=== PATIENT | female | born 1990 | race Caucasian/White ===

== ENCOUNTER 2017-05-03 23:00 | Inpatient (IN) | payer OTHER ==
[~2017-05-03] VITALS: Ht 165.1 cm; Wt 49.9 kg
--- NOTE | ~2017-05-03 | DS ---
Unit #: [id number] #: [id number] Patient: [facility] CALVO [id number] [facility] [address] [place] [address] [id number] MR#: [id number] NAME: HERMELINDA CALVO. ROOM: P174 Age: 26 Sex: F Admission Date: 05/04/2017 : 1990 Discharge Date: 05/08/2017 Attending Physician: Morena Malone M.D. Primary Care Physician: Primary Care Physician No DISCHARGE SUMMARY IDENTIFYING DATA Ms. Calvo is a 26-year-old, , white female who is a resident of [place], [place] and was self-referred to the hospital on a voluntary basis with a blood alcohol level of 0.087. DISCHARGE DIAGNOSES Psychiatric: Alcohol dependence, moderate and acute withdrawals; opioid dependence, moderate; alcohol-induced mood disorder. Medical: None. Stressors: Moderate psychosocial stressors. HISTORY OF PRESENT ILLNESS Please see initial psychiatric evaluation for details. PAST PSYCHIATRIC HISTORY Please see initial psychiatric evaluation for details. PAST MEDICAL HISTORY Please see initial psychiatric evaluation for details. HOSPITAL COURSE The [facility] and was oriented to the hospital environment. Routine p.r.n. medications were initiated, and she was started on the detox protocol and was closely monitored. She was seen to be anxious, withdrawn, and rather seclusive to herself, though was cooperative with treatment recommendation and was taking the medications regularly and was tolerating them fairly well and was able to come out of the detox without any complications and as such, it was decided that she will be discharged home and will continue treatment on an outpatient basis. DISCHARGE MEDICATIONS None. DISCHARGE CONDITION Stable. PROGNOSIS Fair. Dictated by... Morena Malone M.D. Unit #: [id number] #: [id number] Patient: HERMELINDA CALVO IAA/modl TD: 05/08/2017 19:10 JOB #: [id number] DISCHARGE SUMMARY Page 1 of 1 X Morena Malone MD X DISCHARGE SUMMARY
--- NOTE | ~2017-05-03 | PA ---
Unit #: [id number] #: [id number] Patient: HERMELINDA CALVO [id number] [facility] [address] [place] [address] [id number] MR#: [id number] NAME: HERMELINDA CALVO. ROOM: P174 Age: 26 Sex: F Admission Date: 05/04/2017 : 1990 Date of Assessment: 05/04/2017 Attending Physician: Morena Malone M.D. Admitting Physician: Morena Malone M.D. Primary Care Physician: Primary Care Physician No PSYCHIATRIC ASSESSMENT DATE OF SERVICE 05/04/2017. IDENTIFYING DATA Ms. Calvo is a 26-year-old white female, who is a resident of [place], [place], and was self-referred to the hospital on a voluntary basis with a blood alcohol level of 0.087. CHIEF COMPLAINT "I've been drinking a fifth of vodka daily." HISTORY OF PRESENT ILLNESS Ms. Calvo is a 26-year-old white female with history of substance abuse and dependence, who was self-referred to the hospital stating that she has been drinking a fifth of vodka on a daily basis and last drink several hours ago during the afternoon hours, though she was still intoxicated upon presentation and she was finding it difficult to be redirected and laughing at questions, fidgeting in the chair, and reports that she has been drinking a fifth of vodka daily for the last 8 years and parents of the patient were present during the assessment. They report that on occasion the patient exceeds a fifth of vodka and that she has been returning to the liquor store to purchase another container after finishing the first one. The patient reports that she is suicidal and when asked what the plan is, the patient reports that she plans to hang herself with a rope and reports that she has lost custody of her children and is having financial issues and "I lost everything, I feel like drinking myself to ." She also reports that she also uses Suboxone, but that she has not had any in the last 3 days and apparently was having some withdrawals from opioids as well. SUBSTANCE ABUSE HISTORY The patient reports history of alcohol and opioid dependence, currently alcohol has been her drug of choice. PAST PSYCHIATRIC HISTORY The patient has not had any prior inpatient or outpatient psychiatric treatment. Review of the medical records indicate that currently she is not active in any treatment program, is not seeing a psychiatrist, and is not taking any psychotropic medications. PAST MEDICAL HISTORY No acute or chronic medical illnesses. Unit #: [id number] #: [id number] Patient: HERMELINDA CALVO ALLERGIES No known medication allergies. PERSONAL AND SOCIAL HISTORY A [id number] white female, who reports that she is single, unemployed, and lives at home with her parents and has a daughter and reports fairly decent social support system. MENTAL STATUS EXAMINATION Young white female, who was casually dressed with fair personal hygiene, and appears to be in no acute distress or discomfort. She was awake and alert on interaction with intact orientation to time, place, and person. Her mood was anxious and depressed with a congruent affect. Her speech was slow and restricted in content. She reports having suicidal ideations, but denies any homicidal ideations and also denies any auditory or visual hallucinations. Her insight and judgment remain significantly impaired. DIAGNOSTIC IMPRESSION Psychiatric: Alcohol dependence, moderate, in acute withdrawals; opioid dependence, moderate, in acute withdrawal; and alcohol-induced mood disorder. Medical: None. Stressors: Moderate psychosocial stressors. TREATMENT PLAN 1. The patient has presented with a history of mood disorder and has been decompensating and will need inpatient hospitalization for detoxification, safety, and stabilization. We will start her back on her home medications. We will adjust the medications and monitor response. 2. Supportive therapy was provided to the patient. 3. Safe, structured, and nourishing environment will be provided. ESTIMATED LENGTH OF STAY 5 to 7 days. ABILITY TO HELP SELF Limited. WILLINGNESS TO HELP SELF The patient appears to be willing to help self. STRENGTHS 1. Communicative. 2. Cooperative. PROBLEMS 1. Chronic dysphoric symptoms. 2. Chronic chemical dependency. 3. Poor social support system. DISCHARGE CRITERIA This will be contingent upon the patient's ability to show resolution of her depression and anxiety and her ability to stay safe to herself, particularly after discharge from the hospital. Dictated by... Morena Malone M.D. Unit #: [id number] #: [id number] Patient: HERMELINDA CALVO IAA/modl TD: 05/04/2017 19:03 JOB #: [id number] PSYCHIATRIC ASSESSMENT Page 1 of 1 X Morena Malone MD PSYCHIATRIC ASSESSMENT
--- NOTE | ~2017-05-03 | PN ---
Unit #: [id number] #: [id number] Patient: HERMELINDA CHRIS [id number] [facility] [address] [place] [address] [id number] I MR#: [id number] NAME: HERMELINDA CHRIS. ROOM: P174 Age: 26 Sex: F Admission Date: 05/04/2017 : 1990 Attending Physician: Morena Malone M.D. Admitting Physician: Morena Malone M.D. Primary Care Physician: Primary Care Physician Sarah GAMBINO NOTES DATE May 07, 2017 DISCUSSION Ms. Chris is a 26-year-old white female, who was seen today and chart was reviewed and the case was discussed with the staff. She has been anxious, withdrawn, and rather seclusive to herself. Meanwhile, she has been cooperative with the treatment recommendations and she has been taking the medications and tolerating them fairly well with no reported side effects. MENTAL STATUS EXAMINATION Young white female, who was casually dressed with fair personal hygiene and appears to be in no acute distress or discomfort. She was awake and alert with impaired attention and concentration. Her mood was anxious with a congruent affect. The patient denies any suicidal or homicidal ideations. Her insight and judgment remain slightly impaired. TREATMENT PLAN 1. We will continue her on her current medications and treatment protocol, and will monitor her response to the medications, and make further adjustments as needed. 2. We will continue to followup. Dictated by... Mojgan Bertrand/riley TD: 05/08/2017 08:56 JOB #: [id number] D[facility] PROGRESS NOTES Page 1 of 1 X Morena Malone MD X PROGRESS NOTE
--- NOTE | ~2017-05-03 | HP ---
Unit #: [id number] #: [id number] Patient: NERY CALVO [id number] [place] [address] [id number] I MR#: [id number] NAME: NERY CALVO. ROOM: P174 Age: 26 Sex: F Admission Date: 05/04/2017 : 1990 Attending Physician: Morena Malone M.D. Admitting Physician: Morena Malone M.D. Primary Care Physician: Primary Care Physician No HISTORY AND PHYSICAL HISTORY OF PRESENT ILLNESS Nery is a 26 year old admitted to [facility] because of her abuse of alcohol. She is detoxing. PAST MEDICAL HISTORY History of alcohol abuse. PAST SURGICAL HISTORY D & C ALLERGIES No known drug allergies. SOCIAL HISTORY Smokes one-half packs per day. Drinks a fifth of vodka on a daily basis. Denies illicit drug use. FAMILY HISTORY Medically noncontributory. REVIEW OF SYSTEMS CONSTITUTIONAL: No fever or chills. HEENT: Denies any sore throat, ear pain or runny nose. CARDIOVASCULAR: Denies chest pain, irregular heart rhythm or palpitations. CHEST: Denies shortness of breath or cough. No hemoptysis. GASTROINTESTINAL: Denies nausea, vomiting, diarrhea or chronic constipation. ENDOCRINE: Denies history of increased thirst or urination. No recent significant weight loss or gain. GENITOURINARY: Denies dysuria, frequency, or hematuria. SKIN: Denies any rashes. HEMATOLOGIC: Denies history of increased bleeding or bruising. MUSCULOSKELETAL: Denies any hot, swollen joints. No generalized muscle pain. NEUROLOGIC: Denies problems with vision or speech. No frequent, severe headaches. No numbness, tingling or weakness in any extremities. Denies loss of bladder or bowel control. CURRENT MEDICATIONS 1. Detox protocol 2. Nicotine patch 21 mg q day PHYSICAL EXAMINATION Unit #: [id number] #: [id number] Patient: NERY CALVO GENERAL: Alert, well-nourished, in no apparent distress. VITAL SIGNS: Blood pressure 106/64, heart rate 80, respirations 16, temperature 98.6. WEIGHT: 110 pounds. HEIGHT: 5'5". SKIN: Warm and dry without rash or lesion. HEENT: Normocephalic. TMs not viewed. Oral and nasal passages clear. Conjunctivae clear. Pupils equal, round and reactive to light and accommodation. Extraocular movements intact. NECK: Supple without lymphadenopathy or thyromegaly. HEART: Regular rate and rhythm without murmur. LUNGS: Clear. ABDOMEN: Soft, nontender. : Not done. EXTREMITIES: No evidence of cyanosis, clubbing or edema. Moves all extremities without focal deficit. NEUROLOGICAL: Grossly within normal limits. Cranial Nerves: II: Visual la are intact. III, IV AND : Extraocular movements are intact. Pupils are equal, round and reactive to light. V: Facial sensation is grossly normal. VII: Facial movements and expression are normal. VIII: Auditory acuity grossly intact. IX, X: Uvula is midline. Phonation is normal. XI: Patient shrugs shoulders and turns head normally. XII: Tongue protrudes in the midline. Sensory and Motor Function: Sensory and motor sensation is grossly normal. Motor: moves all extremities well. Coordination: Gait is normal. Deep Tendon Reflexes: Intact. IMPRESSION Psychiatric admission. RECOMMENDATIONS PSYCHIATRIC: Per psychiatrist. MEDICAL: I see no contraindications to participating in facility's activities. MEDICAL PROGNOSIS Good. MEDICAL CONDITION Stable. Dictated by... Mala Dorantes PAddieAAddie-Bee. for Mojgan Smiley/mara TD: 05/04/2017 21:19 JOB #: [id number] Unit #: [id number] #: [id number] Patient: NERY CALVO HISTORY AND PHYSICAL Page 1 of 1 X Mala Dorantes X HISTORY AND PHYSICAL
--- NOTE | ~2017-05-03 | PN ---
Unit #: [id number] #: [id number] Patient: HERMELINDA CHRIS [id number] [facility] [address] [place] [address] [id number] I MR#: [id number] NAME: HERMELINDA CHRIS. ROOM: P174 Age: 26 Sex: F Admission Date: 05/04/2017 : 1990 Attending Physician: Morena Malone M.D. Admitting Physician: Morena Malone M.D. Primary Care Physician: Primary Care Physician Sarah GAMBINO NOTES DATE OF SERVICE 05/05/2017 DISCUSSION Ms. Chris is a 26-year-old white female who was seen today. Chart was reviewed and case was discussed with the staff. She has been anxious, withdrawn, and rather seclusive to herself. Meanwhile, she has been cooperative with the treatment recommendations and has been taking the medications and tolerating them fairly well with no reported side effects. There still appears to be some distress or discomfort. However, has not shown any agitation or irritability, and for the most part has been cooperative with the treatment recommendations. MENTAL STATUS EXAMINATION Young white female who is casually dressed with fair personal hygiene, appears to be in no acute distress or discomfort. The patient was awake and alert with impaired attention and concentration. Her mood is anxious with congruent affect. She denies any suicidal or homicidal ideations. Her insight and judgment remain slightly impaired. TREATMENT PLAN 1. We will continue her on her current medications and treatment protocol. We will monitor her response to the medications and make further adjustments as needed. 2. We will continue to follow up. Dictated by... Mojgan Bertrand/bzg TD: 05/05/2017 08:51 JOB #: [id number] Unit #: [id number] #: [id number] Patient: HERMELINDA CHRIS DHRUV PROGRESS NOTES Page 1 of 1 X Morena Malone MD PROGRESS NOTE
--- NOTE | ~2017-05-03 | PN ---
Unit #: [id number] #: [id number] Patient: HERMELINDA CHRIS [id number] [facility] [address] [place] [address] [id number] MR#: [id number] NAME: HERMELINDA CHRIS. ROOM: P174 Age: 26 Sex: F Admission Date: 05/04/2017 : 1990 Attending Physician: Morena Malone M.D. Admitting Physician: Morena Malone M.D. Primary Care Physician: Primary Care Physician Sarah GAMBINO NOTES DATE 05/06/2017 DISCUSSION Ms. Chris is a 26-year-old white female with alcohol dependence and mood disorder who was seen today and chart was reviewed and case was discussed with the staff. She appears to be going through acute detox as she was laying in the bed and was anxious, withdrawn, unkempt, disheveled and in distress and discomfort and hardly able to carry on much conversation. Meanwhile, she has been taking the medications and tolerating them fairly well with no reported side effects. MENTAL STATUS EXAMINATION Young white female who was casually dressed with fair personal hygiene and appears to be in no acute distress or discomfort. She was awake and alert with impaired attention and concentration. Her mood was anxious with congruent affect. She denies any suicidal or homicidal ideations. Her insight and judgement remains significantly impaired. TREATMENT PLAN 1. Will continue on current medications and treatment protocol. Will monitor her response to the medications and make further adjustments as needed. 2. Will continue to follow up. Dictated by... Mojgan Bertrand/ryan TD: 05/06/2017 20:20 JOB #: [id number] Unit #: [id number] #: [id number] Patient: HERMELINDA CHRIS DHRUV PROGRESS NOTES Page 1 of 1 X Morena Malone MD PROGRESS NOTE
--- NOTE | ~2017-05-03 | A ---
[facility] Nutrition Therapy DATE: 05/05/17 Patient: HERMELINDA CALVO Physician: PENELOPEAIRF Address: [address] Room/Bed: [address], Zip: [place] [address] Admit Date: 05/04/17 Date of : [birth year] Height: 5 5 Weight: [phone] NUTRITIONAL ASSESSMENT: REASON: LOW BMI (18.3), UNINTENTIONAL WEIGHT LOSS PATIENT ADMITTED FOR ETOH DETOX PMH: NONE Anthropometrics: HT: 65", WT: 110#, BMI: 18.3, %IBW: 88 Labs: 05/04/17- NUTRITIONAL LABS WNL Meds: KARY SPENCER, DETOX PROTOCOL Assessment: PATIENT IS A 26 Y/O FEMALE ADMITTED FOR ETOH DETOX. PATIENT IS CURRENTLY UNEMPLOYED, LIVES WITH HER PARENTS, SMOKES 1 1/2 PPD, HAS DAILY ETOH USE, AND FREQUENT SUBOXONE USE. PATIENT DRINKS AT LEAST A FIFTH DAILY. UPON ADMIT PATIENT STATED A FAIR APPETITE WITH A 203 WEIGHT LOSS OVER LAST SEVERAL MONTHS, AND SHE HAS NOT BEEN SLEEPING. NURSING REPORTS FAIR PO INTAKES. PATIENT HAS HAD SOME C/O NAUSEA. PATIENT IS ACTIVELY DETOXING. THERE ARE NO SKIN ISSUES NOTED ATT. PATIENT IS ON A REGULAR DIET. THIS RD SUSPECTS WEIGHT AND APPETITE TO STABILIZE AND POSSIBLY INCREASE FOLLOWING DETOX. Dx: INADEQUATE PO INTAKES R/T CURRENT CONDITIONS, DETOX AEB SELF-REPORTED WEIGHT LOSS, DECREASED APPETITE, LOW BMI, NUTRITIONAL RISK POINT Intervention: REGULAR DIET, MEDS PER MD, DETOX, PSYCH Monitoring, Evaluation and Goals: 1. ADEQUATE PO INTAKES >50-75% OF MEALS 2. PREVENT, CORRECT MICRO/MACRO NUTRIENT DEFICIENCIES 3. WEIGHT; PROMOTE A STEADY WEIGHT GAIN TOWARDS A HEALTHY BMI OF 19-25, PREVENT FURTHER WEIGHT LOSS MONITOR: WEIGHTS, LABS, PO/FLUID INTAKES Recommendations: 1. CONTINUE REGULAR DIET TOLERATED. OFFER SNACKS BETWEEN MEALS. IF PATIENT HAS C/O HUNGER PLEASE SEND ORDER FOR LARGER PORTIONS AND RD WILL APPROVE 2. ENCOURAGE ADEQUATE PO AND FLUID INTAKES 3. OBTAIN WEIGHTS ROUTINELY (EVERY 3-4 DAYS) 4. IF PO INTAKES FALL BELOW 50-75% CONSUMPTION OF MEALS PLEASE ORDER ENSURE BID TO PROMOTE [facility] Nutrition Therapy DATE: 05/05/17 Patient: HERMELINDA CALVO Physician: AFAIRF Address: [address] Room/Bed: [address], Zip: [place] [address] Admit Date: 05/04/17 Date of : [birth year] Height: 5 5 Weight: [phone] ADEQUATE KCAL AND PROTEIN INTAKES RD TO F/U PER PROTOCOL AND PRN R/T PATIENT MILDLY COMPROMISED Respectfully, TUTU DAVIS, RD, LD [facility] Nutrition[facility] Services [facility] cc: client file
[2017-05-04 09:54] LABS: BASOPHIL# 0.1 X10e3 (0-0.3); BASOPHIL% 1.3 % (0-2.5); EOSINOPHIL# 0.5 X10e3 (0-0.7); EOSINOPHIL% 4.7 % (0.0-7.0); HEMATOCRIT 42.1 % (35.0-45.0); HEMOGLOBIN 13.9 gm/dL (12.0-16.0); LYMPHOCYTE# 4.7 X10e3 (1.0-3.5); LYMPHOCYTE% 48.8 % (17.0-45.0); MEAN CELL VOLUME 92.5 FL (83-96); MEAN CORPUSCULAR HEMOGLOBIN 30.6 PG (28-34); MEAN CORPUSCULAR HGB CONC 33.1 g/dL (30-36); MEAN PLATELET VOLUME 8.9 FL (6.5-11.5); MONOCYTE# 0.5 X10e3 (0-1.0); MONOCYTE% 5.4 % (3.0-12.0); NEUTROPHIL# 3.9 X10e3 (1.5-7.1); NEUTROPHIL% 39.8 % (40-75); PLATELET COUNT 273 X10e3 (140-420); RED BLOOD COUNT 4.55 X10e (3.90-5.30); RED CELL DISTRIBUTION WIDTH 16.1 % (11.0-15.5); WHITE BLOOD COUNT 9.7 X10e3 (4.0-10.5)
[2017-05-04 10:05] LABS: DIFF IND NO
[2017-05-04 10:30] LABS: ALBUMIN SERUM 3.6 g/dL (3.5-5.0); BILIRUBIN,TOTAL 0.7 mg/dL (0.2-2.0); CALCIUM SERUM 8.7 mg/dL (8.4-10.2); CREATININE SERUM 0.6 mg/dL (0.6-1.4); GLOM FILT RATE Estimated 124.9 mL/min (>60); POTASSIUM 3.6 mmol/L (3.5-5.1); PROTEIN TOTAL SERUM 6.1 g/dL (6.0-8.3)
== END 2017-05-08 10:40 | DRG 897 ==
LOC: P1E 05-04 02:04
PROVIDERS: Psychiatry & Neurology Psychiatry
PROC: HZ2ZZZZ Detoxification Services for Substance Abuse Treatment (ICD-10-PCS; principal; 2017-05-04)
DX: F10.230 Alcohol dependence with withdrawal, uncomplicated (principal); F11.23 Opioid dependence with withdrawal; R45.851 Suicidal ideations; F10.24 Alcohol dependence with alcohol-induced mood disorder; F17.210 Nicotine dependence, cigarettes, uncomplicated
CPT/HCPCS: 80053; 84703; 85025; 86592

== ENCOUNTER 2017-05-21 | Inpatient (IN) | payer OTHER ==
[~2017-05-21] VITALS: Ht 154.9 cm; Wt 59.4 kg
--- NOTE | ~2017-05-21 | DS ---
Unit #: [id number] #: [id number] Patient: [facility] [id number] [facility] [address] [place] [address] [id number] I MR#: [id number] NAME: HERMELINDA CHRIS. ROOM: P212 Age: 26 Sex: F Admission Date: 05/21/2017 : 1990 Discharge Date: 05/25/2017 Attending Physician: Morena Malone M.D. Primary Care Physician: Generic Doctor Not In System DISCHARGE SUMMARY REVISED REPORT (See Addendum) IDENTIFYING DATA Ms. Chris is a 26-year-old white female, who is a resident of [place], [place], and was self-referred to the hospital on voluntary basis. DISCHARGE DIAGNOSES Psychiatric: Major depressive disorder, recurrent, moderate, without psychotic features; opioid dependence, moderate and acute withdrawals; alcohol dependence, moderate and acute withdrawals. Medical: None. Stressors: Moderate psychosocial stressors. HISTORY OF PRESENT ILLNESS Please see initial psychiatric evaluation for details. PAST PSYCHIATRIC HISTORY Please see initial psychiatric evaluation for details. PAST MEDICAL HISTORY Please see initial psychiatric evaluation for details. HOSPITAL COURSE The patient was admitted to the adult psychiatric unit at [facility] and was oriented to the hospital environment. Routine p.r.n. medications were initiated, and she was started back on her home medications and was closely monitored. She was taking the medications regularly and was tolerating them fairly well and was able to show a decent and therapeutic response with improvement in depression and anxiety, and as such, it was decided that she will be discharged home and will continue treatment on an outpatient basis. DISCHARGE MEDICATIONS Effexor XR 75 mg a day for depression, Seroquel 100 mg at bedtime for depression. DISCHARGE CONDITION Stable. PROGNOSIS Fair. Dictated by... Morena Malone M.D. Unit #: [id number] #: [id number] Patient: HERMELINDA CHRIS IAA/modl TD: 05/23/2017 23:44 JOB #: [id number] ADDENDUM Ms. Chris is a 26-year-old white female with history of substance abuse and mood disorder who was initially scheduled to be discharged on May 23; however, she stated that she was not feeling safe and was still having detox symptoms. As such discharge planning was canceled, and medications were maintained, and once he started feeling better, she felt comfortable continuing treatment on outpatient basis. As such it was decided that she will be discharged home. We will continue treatment on outpatient basis. CONDITION ON DISCHARGE Stable. PROGNOSIS Fair. Dictated by... Mojgan Bertrand/bzg TD: 05/25/2017 07:17 JOB #: [id number] DISCHARGE SUMMARY Page 1 of 1 X Morena Malone MD X DISCHARGE SUMMARY
--- NOTE | ~2017-05-21 | HP ---
Unit #: [id number] #: [id number] Patient: HERMELINDA CALVO [id number] [facility] [address] [place] [address] [id number] I MR#: [id number] NAME: HERMELINDA CALVO. ROOM: P212 Age: 26 Sex: F Admission Date: 05/21/2017 : 1990 Attending Physician: Morena Malone M.D. Admitting Physician: Morena Malone M.D. Primary Care Physician: Generic Doctor Not In System HISTORY AND PHYSICAL REASON FOR ADMISSION Acute psychiatric inpatient admission. HISTORY OF PRESENT ILLNESS The patient is a 26-year-old female, positive suicidal ideation, increased aggressive behavior, at home, thus was admitted for same feelings of hopelessness, was also noted. PAST MEDICAL HISTORY Prior history of underlying mental illness, prior history of head trauma. CURRENT MEDICATIONS Suboxone. ALLERGIES Sulfa drugs. FAMILY HISTORY Alcoholism. SOCIAL HISTORY Alcohol, tobacco, Suboxone prescribed. REVIEW OF SYSTEMS Disheveled slurred speech, depressed, flat affect. Otherwise as per HPI. PHYSICAL EXAMINATION GENERAL: Awake, alert, oriented to person, place, and time. Well built, well nourished. Does not appear to be in any acute distress. VITAL SIGNS: Temperature 97.8, pulse 104, respiratory rate 20, blood pressure 127/93. HEAD: Atraumatic. Normocephalic. EYES: Bilateral extraocular muscles are normal. Pupils equal, reactive to light and accommodation. Sclerae are normal. No jaundice. NECK: Neck is supple. No neck rigidity. No thyromegaly. No carotid bruit. No JVD. Oral mucosa is moist. CHEST: Bilateral vesicular breathing. Clear to auscultation. No basilar rales. CARDIOVASCULAR: S1 and S2 normal. No murmur, no gallop, no rub. ABDOMEN: Soft, nontender. No organomegaly. Bowel sounds are normal. No hernia, no masses, no rebound, no guarding. EXTREMITIES: No pitting edema. No calf tenderness. Extremity pulses, including dorsalis pedis, have good volume. Unit #: [id number] #: [id number] Patient: HERMELINDA CALVO BACK: Normal spine curvature. No spine tenderness. No costovertebral angle tenderness. CLAIM PROFESSIONAL: Cranial nerves normal bilaterally. Motor function bilaterally symmetric and normal. Sensory system normal. SKIN: Warm and dry. ASSESSMENT 1. Acute psychiatric inpatient admission. 2. Suicidal ideation. PLAN As per psychiatrist, medical condition stable, medical prognosis fair. There are no medical contraindications to patient participating in activities while here at [facility]. Dictated by... Tyra Arreola M.D. GINO/elliot TD: 05/21/2017 19:03 JOB #: [id number] HISTORY AND PHYSICAL Page 1 of 1 X Tyra Arreola MD X HISTORY AND PHYSICAL
--- NOTE | ~2017-05-21 | PN ---
Unit #: [id number] #: [id number] Patient: HERMELINDA CALVO [id number] [facility] [address] [place] [address] [id number] MR#: [id number] NAME: HERMELINDA CALVO. ROOM: P212 Age: 26 Sex: F Admission Date: 05/21/2017 : 1990 Attending Physician: Morena Malone M.D. Admitting Physician: Morena Malone M.D. Primary Care Physician: Generic Doctor Not In System [facility] PROGRESS NOTES DATE OF SERVICE 05/22/2017 DISCUSSION Ms. Calvo is a 26-year-old white female who was seen today. Chart was reviewed and case was discussed with the staff. She remains anxious, withdrawn, depressed, in acute distress and discomfort. Meanwhile, she has been taking the medications and tolerating them fairly well with no reported side effects. MENTAL STATUS EXAMINATION Young white female who is casually dressed with fair personal hygiene, appears to be in no acute distress or discomfort. She was awake and alert with intact orientation. Her mood is anxious with congruent affect. She denies any suicidal or homicidal ideations. Her insight and judgment remain slightly impaired. TREATMENT PLAN 1. We will continue her on her current medications and treatment protocol. We will monitor her response to the medications and make further adjustments as needed. 2. We will continue to follow up. Dictated by... Morena Malone M.D. IAA/bzg TD: 05/23/2017 07:22 JOB #: [id number] [facility] PROGRESS NOTES Page 1 of 1 X Morena Malone MD PROGRESS NOTE
--- NOTE | ~2017-05-21 | DS ---
Unit #: [id number] #: [id number] [facility]: [facility]VO [id number] [facility] [address] [place] [address] [id number] MR#: [id number] NAME: HERMELINDA CALVO. ROOM: P212 Age: 26 Sex: F Admission Date: 05/21/2017 : 1990 Discharge Date: Attending Physician: Morena Malone M.D. Primary Care Physician: Generic Doctor Not In System DISCHARGE SUMMARY IDENTIFYING DATA Ms. Calvo is a 26-year-old white female, who is a resident of [place], [place], and was self-referred to the hospital on voluntary basis. DISCHARGE DIAGNOSES Psychiatric: Major depressive disorder, recurrent, moderate, without psychotic features; opioid dependence, moderate and acute withdrawals; alcohol dependence, moderate and acute withdrawals. Medical: None. Stressors: Moderate psychosocial stressors. HISTORY OF PRESENT ILLNESS Please see initial psychiatric evaluation for details. PAST PSYCHIATRIC HISTORY Please see initial psychiatric evaluation for details. PAST MEDICAL HISTORY Please see initial psychiatric evaluation for details. HOSPITAL COURSE The [facility] and was oriented to the hospital environment. Routine p.r.n. medications were initiated, and she was started back on her home medications and was closely monitored. She was taking the medications regularly and was tolerating them fairly well and was able to show a decent and therapeutic response with improvement in depression and anxiety, and as such, it was decided that she will be discharged home and will continue treatment on an outpatient basis. DISCHARGE MEDICATIONS Effexor XR 75 mg a day for depression, Seroquel 100 mg at bedtime for depression. DISCHARGE CONDITION Stable. PROGNOSIS Fair. Dictated by... Morena Malone M.D. Unit #: [id number] #: [id number] Patient: HERMELINDA CALVO IAA/modl TD: 05/23/2017 23:44 JOB #: [id number] DISCHARGE SUMMARY Page 1 of 1 X Morena Malone MD DISCHARGE SUMMARY
--- NOTE | ~2017-05-21 | PN ---
Unit #: [id number] #: [id number] Patient: HERMELINDA CALVO [id number] [facility] [address] [place] [address] [id number] MR#: [id number] NAME: HERMELINDA CALVO. ROOM: P212 Age: 26 Sex: F Admission Date: 05/21/2017 : 1990 Attending Physician: Morena Malone M.D. Admitting Physician: Morena Malone M.D. Primary Care Physician: Eliceo Doctor Not In System [facility] PROGRESS NOTES DATE 05/24/2017 DISCUSSION Ms. Calvo is a 26-year-old white female with substance abuse and mood disorder who was seen today and chart was reviewed and case was discussed with the staff. She has been anxious, withdrawn and rather seclusive to herself. Meanwhile, she has been cooperative with treatment recommendations and has been taking medications and tolerating them fairly well with no reported side effects. MENTAL STATUS EXAMINATION Young white female who was casually dressed with fair personal hygiene and appears to be in no acute distress or discomfort. She was awake and alert on interaction with intact orientation. Her mood was anxious with congruent affect. She denies any suicidal or homicidal ideation. Her insight and judgement remains slightly impaired. TREATMENT PLAN 1. Will continue on current medications and treatment protocol. Will monitor response and make further adjustments as needed. 2. Will continue to follow up. Dictated by... Morena Malone M.D. IAA/ryan TD: 05/24/2017 20:29 JOB #: [id number] Unit #: [id number] #: [id number] Patient: HERMELINDA CALVO [facility] PROGRESS NOTES Page 1 of 1 X Morena Malone MD X PROGRESS NOTE
--- NOTE | ~2017-05-21 | PA ---
Unit #: [id number] #: [id number] Patient: HERMELINDA CALVO [id number] [facility] [address] [place] [address] [id number] I MR#: [id number] NAME: HERMELINDA CALVO. ROOM: P212 Age: 26 Sex: F Admission Date: 05/21/2017 : 1990 Date of Assessment: 05/21/2017 Attending Physician: Morena Malone M.D. Admitting Physician: Morena Malone M.D. Primary Care Physician: Generic Doctor Not In System PSYCHIATRIC ASSESSMENT DATE OF SERVICE 05/21/2017. IDENTIFYING DATA Ms. Calvo is a 26-year-old, , white female who is a resident of [place], [place] and was self-referred to the hospital on a voluntary basis and was accompanied by her parents. CHIEF COMPLAINT "I attempted to hang myself today." HISTORY OF PRESENT ILLNESS Ms. Calvo is a 26-year-old white female with history of mood disorder and substance abuse, who came to the hospital with a blood alcohol level of 0.167 and stated that she attempted to hang herself today and reports that she is depressed and does not know why she just feels like she is tired of living and reports that she is having conflict with her son's father and she is thinking about hurting him, but she does not know what she would do, but reports that her father stopped her earlier from leaving the house and that she would not do anything "stupid." The patient stated that last drink was last night when she had 4 our beers and that she is not taking any medications and has been decompensating. She does report increasing depression, anxiety, agitation, irritability, mood swings, feelings of hopelessness and helplessness, and suicidal ideations and that she attempted to hang herself. The patient reports that she is struggling with ADLs as a result of her addiction and further reports that in the past, the patient would wear makeup and eyes closed, but has been neglecting her grooming habits lately and was refused to bathe while focusing on getting drunk or getting high. She previously has attempted suicide including hanging and overdosing on pills and drinking herself to "shit, I'm like a cat with 9 lives. I cannot fucking for some reason." She reports that she tried to break the glass while admitted for inpatient treatment at [facility] in [place] and used to slit her wrist in the past. She reports that she was disappointed to find out that it was not a real blast. She has been repeatedly making suicidal threats and reports thinking about hurting her son's father and does not have a specific plan, but notes that she wants to "hurting bad." As such, she was seen to be a significant threat to herself and others and recommendation for inpatient level of care for safety and stabilization was made, and the patient was transferred to us. SUBSTANCE ABUSE HISTORY The patient reports history of opioids and benzodiazepine abuse, and Unit #: [id number] #: [id number] Patient: HERMELINDA CALVO reports that she has been getting Suboxone prescribed through a clinic and [place], [place] and at the same time, she has been drinking a fifth of vodka or whiskey on daily basis. She reports alcohol to be her drug of choice. PAST PSYCHIATRIC HISTORY The patient has had history of inpatient chemical dependency treatment at [facility]. Review of the medical records indicate currently she is not active in any treatment program, is not seeing a psychiatrist, and is not taking any psychotropic medications. PAST MEDICAL HISTORY The patient's medical history is insignificant. ALLERGIES No known medication allergies. PERSONAL AND SOCIAL HISTORY A 26-year-old white female who reports that she is single and lives by herself and is employed and has poor social support system. MENTAL STATUS EXAMINATION Young white female who was casually dressed with fair personal hygiene, appears to be in no acute distress or discomfort. She was awake and alert on interaction with intact orientation to time, place, and person. Her mood was anxious and depressed with a congruent affect. Her speech was slow and restricted in content. Her thought processes were disorganized with some looseness of associations and flight of ideas and suicidal ideations. Her insight and judgment remain significantly impaired. DIAGNOSTIC IMPRESSION Psychiatric: Major depressive disorder, recurrent, moderate, without psychotic features; opioid dependence, moderate and acute withdrawals; alcohol dependence, moderate and acute withdrawals. Medical: None. Stressors: Moderate psychosocial stressors. TREATMENT PLAN 1. The patient has presented with history of mood disorder and substance abuse, and has been decompensating and will need inpatient hospitalization for detoxification, safety, and stabilization. We will start her back on her home medications. We will adjust the medications and monitor response. 2. Supportive therapy was provided to the patient. 3. Safe, structured, and nourishing environment will be provided. ESTIMATED LENGTH OF STAY 5 to 7 days. ABILITY TO HELP SELF Limited. WILLINGNESS TO HELP SELF The patient appears to be willing to help self. STRENGTHS 1. Communicative. 2. Cooperative. PROBLEMS Unit #: [id number] #: [id number] Patient: HERMELINDA CALVO 1. Chronic dysphoric symptoms. 2. Poor social support system. DISCHARGE CRITERIA This will be contingent upon the patient's ability to show resolution of her depression and anxiety and her ability to stay safe to herself, particularly after discharge from the hospital. Dictated by... Morena Malone M.D. KURT/elliot TD: 05/21/2017 13:26 JOB #: [id number] PSYCHIATRIC ASSESSMENT Page 1 of 1 X Morena Malone MD X PSYCHIATRIC ASSESSMENT
[2017-05-21 11:08] LABS: URINE APPEARANCE CLEAR; URINE BILIRUBIN NEG (NEG); URINE BLOOD NEG (NEG); URINE COLOR YELLOW; URINE GLUCOSE NEG (NEG); URINE KETONE NEG (NEG); URINE LEUKOCYTE ESTERASE NEG (NEG); URINE NITRATE NEG (NEG); URINE PROTEIN NEG (NEG); URINE SPECIFIC GRAVITY 1.005 (1.003-1.035); URINE UROBILINOGEN 0.2 MG/DL (NEG)
[2017-05-21 11:26] LABS: AMPHETAMINE NEG (NEG); BARBITURATES NEG (NEG); BENZODIAZEPINES NEG (NEG); COCAINE NEG (NEG); MARIJUANA NEG (NEG); OPIATES NEG (NEG); TRICYCLIC ANTIDEPRESSANTS NEG (NEG); U METHADONE NEG (NEG)
[2017-05-22 09:40] LABS: BASOPHIL# 0.1 X10e3 (0-0.3); BASOPHIL% 0.9 % (0-2.5); EOSINOPHIL# 0.3 X10e3 (0-0.7); EOSINOPHIL% 5.4 % (0.0-7.0); HEMOGLOBIN 14.2 gm/dL (12.0-16.0); LYMPHOCYTE# 1.8 X10e3 (1.0-3.5); LYMPHOCYTE% 27.7 % (17.0-45.0); MEAN CELL VOLUME 93.8 FL (83-96); MEAN CORPUSCULAR HEMOGLOBIN 30.9 PG (28-34); MEAN PLATELET VOLUME 8.8 FL (6.5-11.5); MONOCYTE# 0.5 X10e3 (0-1.0); MONOCYTE% 7.6 % (3.0-12.0); NEUTROPHIL# 3.8 X10e3 (1.5-7.1); NEUTROPHIL% 58.4 % (40-75); PLATELET COUNT 219 X10e3 (140-420); RED BLOOD COUNT 4.58 X10e (3.90-5.30); WHITE BLOOD COUNT 6.5 X10e3 (4.0-10.5)
[2017-05-22 09:44] LABS: DIFF IND NO
[2017-05-22 10:24] LABS: ALBUMIN SERUM 3.6 g/dL (3.5-5.0); BILIRUBIN,TOTAL 0.6 mg/dL (0.2-2.0); CREATININE SERUM 0.8 mg/dL (0.6-1.4); GLOM FILT RATE Estimated 101.1 mL/min (>60); POTASSIUM 4.3 mmol/L (3.5-5.1); PROTEIN TOTAL SERUM 6.1 g/dL (6.0-8.3)
== END 2017-05-25 09:35 | disposition home or self-care (01) | DRG 885 ==
LOC: P2S 02:51
PROVIDERS: Psychiatry & Neurology Psychiatry
DX: F33.1 Major depressive disorder, recurrent, moderate (principal); R45.851 Suicidal ideations; F11.23 Opioid dependence with withdrawal; F10.239 Alcohol dependence with withdrawal, unspecified; Z88.2 Allergy status to sulfonamides; Z81.1 Family history of alcohol abuse and dependence
CPT/HCPCS: 80053; 80307; 81003; 84703; 85025; 86592